=== PATIENT | male | born 1975 | race Caucasian/White ===

== ENCOUNTER 2019-10-22 21:12 | Inpatient (IN) | payer OTHER ==
[2019-10-22] MEDS ORDERED: LORazepam 2 MG/ML INJ IV STA (21:31)
[2019-10-22] MEDS ORDERED: LIDOCAINE 1%-EPI 1:100,000 20 ML VIAL SQ STA (22:23)
--- NOTE | 2019-10-22 22:49 | CT ---
EXAMINATION TYPE: CT brain nitzaine wo con DATE OF EXAM: 10/22/2019 COMPARISON: None HISTORY: fall following seizure CT DLP: combined DLP 1213.1 mGycm Automated exposure control for dose reduction was used. Multiple axial sections were obtained of the brain without contrast. Multiple axial sections were obt ained from the skull base to T1 vertebra without contrast. FINDINGS: Ventricles have fairly normal size. There is no mass effect nor midline shift. There is no sign of in tracranial hemorrhage. Calvarium is intact. There is no evidence of cerebral edema. There is some straightening of the mid cervical spine. There is anterior mild spurring at C4-5 C5-6. Posterior elements are intact. There is no evidence of cervical compression fracture. Facet joints ar e intact. IMPRESSION: Negative CT scan of the brain. Negative CT scan cervical spine.
[2019-10-22 22:54] LABS: ALT 109 U/L (4-49); AST 62 U/L (17-59); African American GFR (CKD) >90 (>60 ml/min/1.73 sqM); Albumin 3.9 g/dL (3.5-5.0); Alkaline Phosphatase 118 U/L (38-126); Anion Gap 6 mmol/L; Blood Urea Nitrogen 18 mg/dL (9-20); Carbon Dioxide 26 mmol/L (22-30); Chloride 109 mmol/L (98-107); Creatine Kinase 197 U/L (55-170); Glucose 120 mg/dL (74-99); Non-African American GFR(CKD) >90 (>60 ml/min/1.73 sqM); Potassium 3.8 mmol/L (3.5-5.1); Sodium 141 mmol/L (137-145); Total Protein 6.5 g/dL (6.3-8.2)
[2019-10-22 22:55] LABS: HCT 32.8 % (39.0-53.0); HGB 10.5 gm/dL (13.0-17.5); MCH 32.8 pg (25.0-35.0); MCHC 31.9 g/dL (31.0-37.0); MCV 102.8 fL (80.0-100.0); Macrocytosis Slight; Mean Platelet Volume 7.6; Platelet Count 220 k/uL (150-450); RBC 3.19 m/uL (4.30-5.90); RDW 15.3 % (11.5-15.5); WBC 4.2 k/uL (3.8-10.6)
--- NOTE | 2019-10-22 22:55 | ED ---
Fall HPI <Ashley Barnes Sánchez - Last Filed: 10/23/19 01:18> - General Source: patient, EMS Mode of arrival: EMS <Heather Cisneros - Last Filed: 10/25/19 00:41> - General Chief Complaint: Fall Stated Complaint: seizure Time Seen by Provider: 10/22/19 21:14 - History of Present Illness Initial Comments: The patient is a 44-year-old male with past history of alcohol abuse presents emergency room and from [place]. He was admitted there last Sunday for alcohol abuse. States that this was the last time that he drank. He has been receiving Ativan daily for withdrawal. States that today was the first day that he did not receive any Ativan. He ate dinner and went outside to have a cigarette. States that this was the last thing that he remembered. Bystanders saw that the patient fell forward and hit his left forehead on the concrete. He then began having full tonic-clonic seizure-like activity. This lasted appro ximately 1 minute. The patient then was postictal for approximately 10 minutes. He was placed in a c-collar and EMS transported him to the emergency room for further evaluation. He does arrive to me and is alert and oriented. He states that he has had a history of one seizure previously from alcohol withdrawal. States that at that time he attempted to stop drinking cold turkey and had a seizure. Denies a history of other seizure disorder. States that he felt well prior to the incident. No report of chest pain or shortness of breath prior to the incident. Denies any headaches or visual changes currently. Admits to neck pain because of the c-collar in place. He denies any pain in his upper or lower extremities. No back or flank pain. No use of any other illicit substances. Denies any fevers or chills. Tetanus is up-to-date. There are no alleviating, precipitating or modifying factors (Heather Cisneros) - Related Data Home Medications Medication Instructions Recorded Confirmed Acetaminophen Tab [Tylenol] 650 mg PO Q4H PRN 10/22/19 10/22/19 Calcium/Magnesium(Unknown Dose) 2 tab PO TID 10/22/19 10/22/19 Chlorpheniramine Maleate 4 mg PO Q4H PRN 10/22/19 10/22/19 [Chlor-Trimeton] Ibuprofen [Motrin] 600 mg PO Q6H PRN 10/22/19 10/22/19 Multivitamins, Thera [Multivitamin 1 tab PO DAILY@1330 10/22/19 10/22/19 (formulary)] Ondansetron HCl [Zofran] 8 mg PO Q6H PRN 10/22/19 10/22/19 Thiamine [Vitamin B-1] 100 mg PO DAILY@1330 10/22/19 10/22/19 Tigan 200mg Im Solution 200 mg IM Q6H PRN 10/22/19 10/22/19 Tigan 300mg Suppository 300 mg RECTAL Q6H PRN 10/22/19 10/22/19 Trimethobenzamide HCl [Tigan] 300 mg PO Q6H PRN 10/22/19 10/22/19 Zofran 2mg/Ml Im Solution 4 mg IM Q6H PRN 10/22/19 10/22/19 busPIRone HCl [Buspar] 10 mg PO TID PRN 10/22/19 10/22/19 traZODone HCL 50 - 150 mg PO HS 10/22/19 10/22/19 Previous Rx's Medication Instructions Recorded Folic Acid 1 mg PO DAILY tab 10/24/19 HYDROcodone/APAP 7.5-325MG [[place] 1 each PO Q6H PRN tab 10/24/19 7.5-325] Allergies Allergy/AdvReac Type Severity Reaction Status Date / Time No Known Allergies Allergy Verified 10/22/19 23:27 Review of Systems ROS Other: All systems not noted in ROS Statement are negative. <Ashley Barnes - Last Filed: 10/23/19 01:18> ROS Other: All systems not noted in ROS Statement are negative. <Heather Cisneros - Last Filed: 10/25/19 00:41> ROS Statement: Those systems with pertinent positive or pertinent negative responses have been documented in the HPI. Past Medical History History of Any Multi-Drug Resistant Organisms: None Reported Past Surgical History: No Surgical Hx Reported Past Psychological History: No Psychological Hx Reported Smoking Status: Current every day smoker Past Alcohol Use History: None Reported Past Drug Use History: None Reported <Haether Cisneros - Last Filed: 10/25/19 00:41> General Exam Limitations: no limitations General appearance: alert Head exam: Present: other (stellate laceration right forehead measuring 8.5x 1.0 cm. no deep strcture involvement. no occular entraptment) Eye exam: Present: normal appearance, PERRL, EOMI. Absent: scleral icterus, conjunctival injection, periorbital swelling ENT exam: Present: normal exam, mucous membranes moist Neck exam: Present: normal inspection. Absent: tenderness, meningismus, lymphadenopathy Respiratory exam: Present: normal lung sounds bilaterally. Absent: respiratory distress, wheezes, rales, rhonchi, stridor Cardiovascular Exam: Present: regular rate, normal rhythm, normal heart sounds. Absent: systolic murmur, diastolic murmur, rubs, gallop, clicks Extremities exam: Present: normal inspection, full ROM, normal capillary refill. Absent: tenderness, pedal edema, joint swelling, calf tenderness Back exam: Present: normal inspection Neurological exam: Present: alert, oriented X3, CN II-XII intact <Heather Cisneros - Last Filed: 10/25/19 00:41> Course Vital Signs 10/22/19 10/23/19 10/23/19 21:14 01:49 06:05 Temperature 98.8 F Pulse Rate 88 87 96 Respiratory 18 18 18 Rate Blood Pressure 145/95 128/70 103/63 O2 Sat by Pulse 98 99 99 Oximetry 10/23/19 07:26 Temperature Pulse Rate 76 Respiratory 16 Rate Blood Pressure 132/74 O2 Sat by Pulse 99 Oximetry Procedures - Laceration Laceration #1 Consent Obtained: verbal consent Indication: laceration Site: face Description: stellate Depth: simple, single layer Anesthetic Used: lidocaine 1%, with epi Pre-repair: wound explored, irrigated extensively Type of Sutures: nylon Size of Sutures: 4-0 Number of Sutures: 8 Technique: simple, interrupted Patient Tolerated Procedure: well, no complications <Ashley Barnes - Last Filed: 10/23/19 01:18> Medical Decision Making - Lab Data Result diagrams: 10/22/19 22:32 10/22/19 22:32 <Ashley Barnes - Last Filed: 10/23/19 01:18> - Lab Data Result diagrams: 10/23/19 06:33 10/23/19 06:33 <Heather Cisneros - Last Filed: 10/25/19 00:41> - Medical Decision Making Upon arrival the patient was placed into room 14. Her history and physical exam was performed. I did send the patient for CT of his brain, cervical spine and facial bones. CT was negative for any acute fracture or intracranial bleed and therefore his c-collar was removed. I also performed laboratory studies. The patient was given 1 mg of Ativan IV. I did recommend hospital admission because of his withdrawal seizure. Patient did agree to this. I called and discussed the case with Dr. Antoine who accepted admission for the patient. Dr. Barnes did repair his laceration. I discussed the case with Dr. Garcia who did agree to consult on the patient however did refuse admission. I placed him on alcohol withdrawal protocol. He was then transported to the floor in stable condition (Heather Cisneros) - Lab Data Lab Results 10/22/19 10/22/19 10/22/19 Range/Units 22:32 22:32 22:32 WBC 4.2 (3.8-10.6) k/uL RBC 3.19 L (4.30-5.90) m/uL Hgb 10.5 L (13.0-17.5) gm/dL Hct 32.8 L (39.0-53.0) % MCV 102.8 H (80.0-100.0) fL MCH 32.8 (25.0-35.0) pg MCHC 31.9 (31.0-37.0) g/dL RDW 15.3 (11.5-15.5) % Plt Count 220 (150-450) k/uL Neutrophils % (Manual) 45 % Lymphocytes % (Manual) 28 % Monocytes % (Manual) 17 % Eosinophils % (Manual) 5 % Basophils % (Manual) 5 % Neutrophils # (Manual) 1.89 (1.3-7.7) k/uL Lymphocytes # (Manual) 1.18 (1.0-4.8) k/uL Monocytes # (Manual) 0.71 (0-1.0) k/uL Eosinophils # (Manual) 0.21 (0-0.7) k/uL Basophils # (Manual) 0.21 H (0-0.2) k/uL Nucleated RBCs 0 (0-0) /100 WBC Manual Slide Review Performed Reactive Lymphocytes Present Macrocytosis Slight Sodium 141 (137-145) mmol/L Potassium 3.8 (3.5-5.1) mmol/L Chloride 109 H (98-107) mmol/L Carbon Dioxide 26 (22-30) mmol/L Anion Gap 6 mmol/L BUN 18 (9-20) mg/dL Creatinine 0.84 (0.66-1.25) mg/dL Est GFR (CKD-EPI)AfAm >90 (>60 ml/min/1.73 sqM) Est GFR (CKD-EPI)NonAf >90 (>60 ml/min/1.73 sqM) Glucose 120 H (74-99) mg/dL Plasma Lactic Acid Ivan 1.0 (0.7-2.0) mmol/L Calcium 9.0 (8.4-10.2) mg/dL Total Bilirubin 1.0 (0.2-1.3) mg/dL AST 62 H (17-59) U/L ALT 109 H (4-49) U/L Alkaline Phosphatase 118 (38-126) U/L Creatine Kinase 197 H (55-170) U/L Total Protein 6.5 (6.3-8.2) g/dL Albumin 3.9 (3.5-5.0) g/dL Lipase 298 (23-300) U/L - EKG Data EKG Comments: EKG demonstrates normal sinus rhythm with a ventricular rate of 76. UT interval 164. QRS 88. QTC of 429. There is J-point elevation in V2. No acute ST segment ablation depressions concerning for ischemic changes (Heather Cisneros) Disposition <Ashley Barnes - Last Filed: 10/23/19 01:18> Is patient prescribed a controlled substance at d/c from ED?: No Decision to Admit Reason: Admit from EC Decision Date: 10/22/19 Decision Time: 23:46 <Heather Cisneros - Last Filed: 10/25/19 00:41> Clinical Impression: Alcohol withdrawal seizure, Facial laceration Disposition: ADMITTED IP TO THIS HOSP Condition: Stable
--- NOTE | 2019-10-22 23:00 | CT ---
EXAMINATION TYPE: CT facial bones wo con DATE OF EXAM: 10/22/2019 COMPARISON: None HISTORY: fall following seizure CT DLP: combined DLP 1213.1 mGycm Automated exposure control for dose reduction was used. Multiple axial sections were obtained from the bottom of the mandible to the top of the frontal sinus es without contrast. Mandibular ring is intact. Temporomandibular joints are intact. The zygomatic arches are intact. Orbi cristian margins are intact. There is no evidence of a blowout fracture. There is fairly normal aeration o f the paranasal sinuses. The nasal bone appears deviated slightly to the left side. No displaced frac ture seen. There is soft tissue swelling anterior to the left zygoma. The zygoma appear normal. There is left side periorbital soft tissue swelling. There is apparent laceration above and lateral to the left orbit in the scalp soft tissue. IMPRESSION: Soft tissue swelling on the left side. Periorbital soft tissue swelling and laceration. No fracture s een.
[2019-10-22 23:47] LABS: Basophils # (M) 0.21 k/uL (0-0.2); Eosinophils # (M) 0.21 k/uL (0-0.7); Lymphocytes # (M) 1.18 k/uL (1.0-4.8); Monocytes # (M) 0.71 k/uL (0-1.0); Neutrophils # (M) 1.89 k/uL (1.3-7.7); Neutrophils % (M) 45 %; Nucleated Red Blood Cells 0 /100 WBC (0-0); Total Cells Counted 100
[2019-10-22 23:48] LABS: Reactive Lymphocytes Present
[2019-10-22] MEDS ORDERED: THIAMINE 100 MG/ML 2 ML VIAL IM STA (23:55)
[2019-10-22] MEDS ORDERED: LORazepam 2 MG/ML INJ IV PRN ×3 (23:55)
[2019-10-22] MEDS ORDERED: NALOXONE 0.4 MG/ML 1 ML VIAL IV PRN (23:55)
[2019-10-23] MEDS: THIAMINE 100 MG TAB PO SCH ×3 (00:15→17:46)
[2019-10-23] MEDS: SODIUM CHLORIDE 0.9% 1,000 ML IV SCH ×3 (00:45→19:35)
--- NOTE | 2019-10-23 01:09 | P.HPIM ---
History of Present Illness H&P Date: 10/23/19 The patient is a 44-year-old male with a PMH of EtOH abuse who presented to the ED from [place] after a seizure. The patient reports that he was admitted to [place] on 10/15 for alcohol abuse and was in detox until 10/19. He notes that he was continued on Ativan and was receiving it up until yesterday. He notes feeling better and was at [facility] and had gone outside for cigarette after his dinner when he suddenly woke up on the ground, with people around him, who had activated EMS and informed them that the patient had what appeared to be a grand mal seizure. The patient reports that he previously had one episode of grand mal seizure when he attempted to detox from alcohol on his own. He denied any additional episodes of seizure and reports never taking any anti seizure me dications. The patient suffered facial trauma due to falling on the concrete. At time of the interview, he denied headache, visual disturbances, nausea, vomiting, weakness, numbness, or tingling. The patient underwent an extensive evaluation in the emergency room with a head/cervical spine CT unremarkable and of a facial CT showing soft tissue swelling on the left side with periorbital soft tissue swelling and lacerations with no fractures. EKG revealed normal sinus rhythm at [address]/T-wave changes noted. Laboratory evaluation revealed a WBC count of 4.2, hematocrit 12.5, platelets 220, sodium 141, potassium 3.8, chloride 109, BUN 18, creatinine 0.84, AST 62, ALT 109, lactic ac id 1.0, creatine kinase 197. The patient is being admitted to the medicine service for alcohol withdrawal seizure. Review of Systems Pertinent positives and negatives as discussed in HPI, a complete review of systems was performed and all other systems are negative. Past Medical History History of Any Multi-Drug Resistant Organisms: None Reported Past Surgical History: No Surgical Hx Reported Past Psychological History: No Psychological Hx Reported Smoking Status: Current every day smoker Past Alcohol Use History: None Reported Past Drug Use History: None Reported Medications and Allergies Home Medications Medication Instructions Recorded Confirmed Type Acetaminophen Tab [Tylenol Tab] 650 mg PO Q4H PRN 10/22/19 10/22/19 History Calcium/Magnesium(Unknown Dose) 2 tab PO TID 10/22/19 10/22/19 History Chlorpheniramine Maleate 4 mg PO Q4H PRN 10/22/19 10/22/19 History [Chlor-Trimeton] Ibuprofen [Motrin] 600 mg PO Q6H PRN 10/22/19 10/22/19 History Multivitamins, Thera [Multivitamin 1 tab PO DAILY@1330 10/22/19 10/22/19 History (formulary)] Ondansetron HCl [Zofran] 8 mg PO Q6H PRN 10/22/19 10/22/19 History Thiamine [Vitamin B-1] 100 mg PO DAILY@1330 10/22/19 10/22/19 History Tigan 200mg Im Solution 200 mg IM Q6H PRN 10/22/19 10/22/19 History Tigan 300mg Suppository 300 mg RECTAL Q6H PRN 10/22/19 10/22/19 History Trimethobenzamide HCl [Tigan] 300 mg PO Q6H PRN 10/22/19 10/22/19 History Zofran 2mg/Ml Im Solution 4 mg IM Q6H PRN 10/22/19 10/22/19 History busPIRone HCl [Buspar] 10 mg PO TID PRN 10/22/19 10/22/19 History traZODone HCL 50 - 150 mg PO HS 10/22/19 10/22/19 History Allergies Allergy/AdvReac Type Severity Reaction Status Date / Time No Known Allergies Allergy Verified 10/22/19 23:27 Physical Exam Vitals: Vital Signs Temp Pulse Resp BP Pulse Ox 10/22/19 21:14 98.8 F 88 18 145/95 98 Intake and Output 10/22/19 10/22/19 10/23/19 14:59 22:59 06:59 Other: Weight 86.183 kg General: non toxic, no distress, appears at stated age, normal weight Derm: Dressing overlying face and forehead with a L forehead 5-6 cm laceration noted, no active bleeding noted, left lower extremity ecchymosis noted (patient reports bruising occurred several weeks ago, now improving), warm, dry Head: normocephalic, symmetric Eyes: EOMI, no lid lag, anicteric sclera, pupils equal round reactive to light ENT: Nose and ears atraumatic, no thrush, no pharyngeal erythema, mild tongue fasciculations Neck: No thyromegaly, no cervical lymphadenopathy, trachea midline, supple Mouth: no lip lesion, mucus membranes moist Cardiovascular: S1S2 reg, no murmur, positive posterior tibial pulse bilateral, no edema, capillary refill less than 2 seconds Lungs: CTA bilateral, no rhonchi, no rales , no accessory muscle use Abdominal: soft, nontender to palpation, no guarding, no appreciable organomegaly, normal bowel sounds Ext: no gross muscle atrophy, muscle strength 5 out of 5 in all 4 extremities grossly, no contractures, Neuro: CN II-XI grossly intact, light touch intact all 4 extremities, finger to nose within normal limits, mild out-stretched hand tremor Psych: Alert, oriented, appropriate affect Results CBC & Chem 7: 10/22/19 22:32 10/22/19 22:32 Labs: Abnormal Lab Results - Last 24 Hours (Table) 10/22/19 10/22/19 Range/Units 22:32 22:32 RBC 3.19 L (4.30-5.90) m/uL Hgb 10.5 L (13.0-17.5) gm/dL Hct 32.8 L (39.0-53.0) % MCV 102.8 H (80.0-100.0) fL Basophils # (Manual) 0.21 H (0-0.2) k/uL Chloride 109 H (98-107) mmol/L Glucose 120 H (74-99) mg/dL AST 62 H (17-59) U/L ALT 109 H (4-49) U/L Creatine Kinase 197 H (55-170) U/L Assessment and Plan Plan: Alcohol withdrawal seizure -[facility] protocol -Thiamine, folic acid, multivitamin -Fall, aspiration, seizure precautions -Neuro checks every 4 hourly -Surgery consulted due to trauma -Continue with IV fluids -Monitor electrolytes -Cardiac monitoring Facial trauma with laceration -Surgery consulted Abnormal LFTs -Likely due to history of alcohol abuse -Monitor CMP Macrocytic anemia -Check anemia workup DVT prophylaxis -IPCDs The patient is admitted with an anticipated less than 2 midnight stay for evaluation of alcohol withdrawal seizure CODE STATUS: Full Code Discussed with: Patient Anticipated discharge date: 1-[address]: [place] A total of 40 minutes was spent on the care of this complex patient more than 50% of the time was spent in counseling and care coordination.
[2019-10-23] MEDS ORDERED: busPIRone HCl 10 MG TAB PO PRN (01:10)
[2019-10-23 07:44] LABS: HCT 33.6 % (39.0-53.0); HGB 10.7 gm/dL (13.0-17.5); Hypochromasia Slight; MCV 103.1 fL (80.0-100.0); Macrocytosis Slight; Mean Platelet Volume 7.7; Platelet Count 234 k/uL (150-450); RBC 3.25 m/uL (4.30-5.90)
[2019-10-23 08:02] LABS: ALT 98 U/L (4-49); AST 52 U/L (17-59); African American GFR (CKD) >90 (>60 ml/min/1.73 sqM); Albumin 3.6 g/dL (3.5-5.0); Alkaline Phosphatase 111 U/L (38-126); Anion Gap 7 mmol/L; Blood Urea Nitrogen 14 mg/dL (9-20); Calcium 8.7 mg/dL (8.4-10.2); Carbon Dioxide 24 mmol/L (22-30); Chloride 109 mmol/L (98-107); Glucose 73 mg/dL (74-99); Non-African American GFR(CKD) >90 (>60 ml/min/1.73 sqM); Sodium 140 mmol/L (137-145); Total Protein 6.3 g/dL (6.3-8.2)
[2019-10-23] MEDS: FOLIC ACID 1 MG TAB PO SCH (11:17)
[2019-10-23] MEDS: MULTIVITAMINS, THERA 1 EACH TAB PO SCH (11:17)
--- NOTE | 2019-10-23 15:12 | P.GSCN ---
<Carissa Garza - Last Filed: 10/23/19 14:56> History of Present Illness Consult date: 10/23/19 Reason for Consult: fall Requesting physician: Heather Cisneros History of present illness: CHIEF COMPLAINT: fall HISTORY OF PRESENT ILLNESS: 44 year old male who presented to the ER after sustaining a fall. Patient is currently at [facility] for rehab secondary to history of alcohol abuse. Patient states he was walking outside and fell. He fell forward on the concrete striking his face. Patient does not remember the fall. Patient suffered a laceration above his left eyebrow which was sutured in the emergency room. PAST MEDICAL HISTORY: See list. PAST SURGICAL HISTORY: See list. MEDICATIONS: See list. ALLERGIES: See list. SOCIAL HISTORY: No illicit drug use. REVIEW OF SYSTEMS: CONSTITUTIONAL: Denies fever or chills. HEENT: Denies blurred vision, vision changes, or eye pain. Denies hemoptysis ENDOCRINE: Denies heat or cold intolerance. CARDIOVASCULAR: Denies chest pain or pressure. RESPIRATORY: No shortness of breath. GASTROINTESTINAL: Denies abdominal pain. Denies nausea or vomiting. NEURO: History of seizures due to alcohol withdrawal PSYCH: History of alcohol abuse HEMATOLOGIC: Denies bleeding disorders. LYMPHATIC: The patient denies any lumps and bumps around the neck. GENITOURINARY: Denies any blood in urine or increased urinary frequency. MUSCULOSKELETAL: Denies myalgias. Denies joint swelling. Denies decreased range of motion beyond patients baseline. SKIN: Denies pruitis. Denies rash. PHYSICAL EXAM: VITAL SIGNS: Reviewed GENERAL: Well-developed in no acute distress. HEENT: No sclera icterus. Extraocular movements grossly intact. Moist buccal mucosa. Head is normocephalic. Laceration above left eyebrow that has been sutured. Edema and ecchymosis noted. Hears conversational speech. No nasal drainage. NECK: Supple without lymphadenopathy. CHEST: Non-labored respirations and equal bilateral excursions. CARDIOVASCULAR: Regular rate with regular rhythm. Palpable 2+ radial pulses. ABDOMEN: Soft. Nondistended. Nontender. MUSCULOSKELETAL: No clubbing, cyanosis or edema. NEUROLOGIC: No focal or lateralizing signs. Cranial nerves II through XII grossly intact. PSYCH: Appropriate affect. Alert and oriented to person, place and time. SKIN: Well perfused. Good skin turgor. LABORATORY DATA: W BC 5.0. Hemoglobin 10.7. Platelet count 234. Sodium 143 potassium 4.0. B UN 14. Creatinine 0.75. Lactic acid 1.0 IMAGING: CT brain: Negative for acute process CT cervical spine: Negative for acute process CT face: Soft tissue swelling on the left side. Periorbital soft tissue swelling and laceration. No fracture seen. ASSESSMENT: 1. Trauma, s/p fall from standing 2. History of seizures 3. Facial trauma with laceration 4. History of alcohol abuse PLAN: No surgical intervention recommended from a trauma surgery standpoint. Continue management per internal medicine Nurse practitioner note has been reviewed by physician. Signing provider agrees with the documented findings, assessment, and plan of care. Past Medical History Past Medical History: Seizure Disorder Additional Past Medical History / Comment(s): ETOH abuse, ETOH withdrawal with seizure once in the past. History of Any Multi-Drug Resistant Organisms: None Reported Past Surgical History: No Surgical Hx Reported Past Anesthesia/Blood Transfusion Reactions: Unable to Obtain Additional Past Anesthesia/Blood Transfusion Reaction / Comm: Pt has never had surgery. Smoking Status: Current every day smoker - Past Family History Father Family Medical History: No Reported History Additional Family Medical History / Comment(s): Father is healthy Mother Family Medical History: No Reported History Additional Family Medical History / Comment(s): Mother is healthy. Medications and Allergies Home Medications Medication Instructions Recorded Confirmed Type Acetaminophen Tab [Tylenol] 650 mg PO Q4H PRN 10/22/19 10/22/19 History Calcium/Magnesium(Unknown Dose) 2 tab PO TID 10/22/19 10/22/19 History Chlorpheniramine Maleate 4 mg PO Q4H PRN 10/22/19 10/22/19 History [Chlor-Trimeton] Ibuprofen [Motrin] 600 mg PO Q6H PRN 10/22/19 10/22/19 History Multivitamins, Thera [Multivitamin 1 tab PO DAILY@132910/22/19 10/22/19 History (formulary)] Ondansetron HCl [Zofran] 8 mg PO Q6H PRN 10/22/19 10/22/19 History Thiamine [Vitamin B-1] 100 mg PO DAILY@132910/22/19 10/22/19 History Tigan 200mg Im Solution 200 mg IM Q6H PRN 10/22/19 10/22/19 History Tigan 300mg Suppository 300 mg RECTAL Q6H PRN 10/22/19 10/22/19 History Trimethobenzamide HCl [Tigan] 300 mg PO Q6H PRN 10/22/19 10/22/19 History Zofran 2mg/Ml Im Solution 4 mg IM Q6H PRN 10/22/19 10/22/19 History busPIRone HCl [Buspar] 10 mg PO TID PRN 10/22/19 10/22/19 History traZODone HCL 50 - 150 mg PO HS 10/22/19 10/22/19 History Folic Acid 1 mg PO DAILY tab 10/24/19 Rx HYDROcodone/APAP 7.5-325MG [[place] 1 each PO Q6H PRN tab 10/24/19 Rx 7.5-325] Allergies Allergy/AdvReac Type Severity Reaction Status Date / Time No Known Allergies Allergy Verified 10/22/19 23:27 Surgical - Exam Vital Signs Temp Pulse Resp BP Pulse Ox 98.8 F 88 18 145/95 98 10/22/19 21:14 10/22/19 21:14 10/22/19 21:14 10/22/19 21:14 10/22/19 21:14 Results - Labs 10/23/19 06:33 10/23/19 06:33 Abnormal Lab Results - Last 24 Hours (Table) 10/22/19 10/22/19 10/23/19 Range/Units 22:32 22:32 06:33 RBC 3.19 L 3.25 L (4.30-5.90) m/uL Hgb 10.5 L 10.7 L (13.0-17.5) gm/dL Hct 32.8 L 33.6 L (39.0-53.0) % MCV 102.8 H 103.1 H (80.0-100.0) fL Basophils # (Manual) 0.21 H (0-0.2) k/uL Chloride 109 H (98-107) mmol/L Glucose 120 H (74-99) mg/dL AST 62 H (17-59) U/L ALT 109 H (4-49) U/L Creatine Kinase 197 H (55-170) U/L 10/23/19 Range/Units 06:33 RBC (4.30-5.90) m/uL Hgb (13.0-17.5) gm/dL Hct (39.0-53.0) % MCV (80.0-100.0) fL Basophils # (Manual) (0-0.2) k/uL Chloride 109 H (98-107) mmol/L Glucose 73 L (74-99) mg/dL AST (17-59) U/L ALT 98 H (4-49) U/L Creatine Kinase (55-170) U/L Diabetes panel 10/22/19 10/23/19 Range/Units 22:32 06:33 Sodium 141 140 (137-145) mmol/L Potassium 3.8 4.0 (3.5-5.1) mmol/L Chloride 109 H 109 H (98-107) mmol/L Carbon Dioxide 26 24 (22-30) mmol/L BUN 18 14 (9-20) mg/dL Creatinine 0.84 0.75 (0.66-1.25) mg/dL Glucose 120 H 73 L (74-99) mg/dL Calcium 9.0 8.7 (8.4-10.2) mg/dL AST 62 H 52 (17-59) U/L ALT 109 H 98 H (4-49) U/L Alkaline Phosphatase 118 111 (38-126) U/L Total Protein 6.5 6.3 (6.3-8.2) g/dL Albumin 3.9 3.6 (3.5-5.0) g/dL Calcium panel 10/22/19 10/23/19 Range/Units 22:32 06:33 Calcium 9.0 8.7 (8.4-10.2) mg/dL Albumin 3.9 3.6 (3.5-5.0) g/dL Pituitary panel 10/22/19 10/23/19 Range/Units 22:32 06:33 Sodium 141 140 (137-145) mmol/L Potassium 3.8 4.0 (3.5-5.1) mmol/L Chloride 109 H 109 H (98-107) mmol/L Carbon Dioxide 26 24 (22-30) mmol/L BUN 18 14 (9-20) mg/dL Creatinine 0.84 0.75 (0.66-1.25) mg/dL Glucose 120 H 73 L (74-99) mg/dL Calcium 9.0 8.7 (8.4-10.2) mg/dL Adrenal panel 10/22/19 10/23/19 Range/Units 22:32 06:33 Sodium 141 140 (137-145) mmol/L Potassium 3.8 4.0 (3.5-5.1) mmol/L Chloride 109 H 109 H (98-107) mmol/L Carbon Dioxide 26 24 (22-30) mmol/L BUN 18 14 (9-20) mg/dL Creatinine 0.84 0.75 (0.66-1.25) mg/dL Glucose 120 H 73 L (74-99) mg/dL Calcium 9.0 8.7 (8.4-10.2) mg/dL Total Bilirubin 1.0 1.0 (0.2-1.3) mg/dL AST 62 H 52 (17-59) U/L ALT 109 H 98 H (4-49) U/L Alkaline Phosphatase 118 111 (38-126) U/L Total Protein 6.5 6.3 (6.3-8.2) g/dL Albumin 3.9 3.6 (3.5-5.0) g/dL <Melva Garcia N - Last Filed: 10/24/19 17:14> History of Present Illness History of present illness: As above. No surgical intervention needed. Sutures along the face to remain for at least 5 days prior to removal. Surgical - Exam Vital Signs Temp Pulse Resp BP Pulse Ox 98.8 F 88 18 145/95 98 10/22/19 21:14 10/22/19 21:14 10/22/19 21:14 10/22/19 21:14 10/22/19 21:14 Results - Labs 10/23/19 06:33 10/23/19 06:33
--- NOTE | 2019-10-23 16:01 | P.PN ---
Progress Note - Text Progress Note Date: 10/23/19 Patient was seen and examined. Please refer to H&P for full documentation. Patient reports history of alcohol abuse, and. [facility] for detox on , has been on oral Ativan, unsure of dosing. Patient was smoking a cigarette when he lost consciousness without prodrome. Patient states that he is unsure if he was shaking. He denies any tongue biting. No bladder or bowel incontinence. States that he had a seizure 4-5 years ago from alcohol withdrawal. Patient is alert and oriented 3. Patient is within the time frame for alcohol-induced seizures. He has been on oral Ativan but unsure of dosing. We will evaluate patient for syncopal episode. Orthostats ordered. Telemetry monitoring. EEG. Neurology consult. Plans for possible DC tomorrow.
[2019-10-23 16:46] LABS: Folate, Serum 6.3 ng/mL
[2019-10-23] MEDS ORDERED: HYDROcodone/APAP 7.5-325MG 1 EACH TAB PO ONE (19:40)
[2019-10-23] MEDS ORDERED: NICOTINE POLACRILEX 2 MG GUM BUCCAL STA (21:32)
[2019-10-23] MEDS: NICOTINE 21MG/24HR PATCH TRANSDERM SCH (21:33)
[2019-10-23 21:47] VITALS: RESP 16
[2019-10-24] MEDS: SODIUM CHLORIDE 0.9% 1,000 ML IV SCH (04:54)
[2019-10-24] MEDS: MULTIVITAMINS, THERA 1 EACH TAB PO SCH (07:46)
[2019-10-24] MEDS: NICOTINE 21MG/24HR PATCH TRANSDERM SCH (07:46)
[2019-10-24] MEDS: THIAMINE 100 MG TAB PO SCH (07:46)
[2019-10-24] MEDS: FOLIC ACID 1 MG TAB PO SCH (07:46)
[2019-10-24] MEDS: HYDROcodone/APAP 7.5-325MG 1 EACH TAB PO PRN ×2 (08:32→15:31)
--- NOTE | 2019-10-24 10:00 | ECHOF ---
Referral Reason:Syncope MEASUREMENTS -------- HEIGHT: 182.9 cm WEIGHT: 86.2 kg BP: RVIDd: 2.5 cm (< 3.3) IVSd: 1.0 cm (0.6 - 1.1) LVIDd: 3.2 cm (3.9 - 5.3) LVPWd: 1.1 cm (0.6 - 1.1) IVSs: 1.4 cm LVIDs: 1.9 cm LVPWs: 1.5 cm LAESV Index (A-L): 25.35 ml/m Ao Diam: 3.2 cm (2.0 - 3.7) AV Cusp: 1.6 cm (1.5 - 2.6) LA Diam: 2.4 cm (2.7 - 3.8) MV EXCURSION: 19.783 mm (> 18.000) MV EF SLOPE: 166 mm/s (70 - 150) EPSS: 0.6 cm MV E Rohit: 0.82 m/s MV DecT: 212 ms MV A Rohit: 0.67 m/s MV E/A Ratio: 1.22 RAP: 5.00 mmHg RVSP: 14.42 mmHg TAPSE: 29.50 mm FINDINGS -------- Sinus rhythm. This was a technically good study. The left ventricular size is normal. Left ventricular wall thickness is normal. Overall left vent ricular systolic function is normal with, an EF between 55 - 60 %. The diastolic filling pattern is normal The right ventricle is normal in size. The right ventricular systolic function is normal. The left atrial size is normal. Normal LA size by volume 22+/-6 ml/m2. The right atrial size is normal. Interatrial and interventricular septum intact. The aortic valve is trileaflet and appears structurally normal. The mitral valve is normal. The mitral valve leaflets are mildly thickened. There is trace mitral regurgitation. The tricuspid valve appears structurally normal. Trace tricuspid regurgitation present. Right mindy tricular systolic pressure is normal at < 35 mmHg. There is no pulmonic regurgitation present. The aortic root size is normal. Normal inferior vena cava with normal inspiratory collapse consistent with estimated right atrial pre ssure of 5 mmHg. There is no pericardial effusion. CONCLUSIONS -------- 1. Sinus rhythm. 2. This was a technically good study. 3. The left ventricular size is normal. 4. Left ventricular wall thickness is normal. 5. Overall left ventricular systolic function is normal with, an EF between 55 - 60 %. 6. The diastolic filling pattern is normal 7. The right ventricle is normal in size. 8. The right ventricular systolic function is normal. 9. The left atrial size is normal. 10. Normal LA size by volume 22+/-6 ml/m2. 11. The right atrial size is normal. 12. Interatrial and interventricular septum intact. 13. The aortic valve is trileaflet and appears structurally normal. 14. The mitral valve is normal. 15. The mitral valve leaflets are mildly thickened. 16. There is trace mitral regurgitation. 17. The tricuspid valve appears structurally normal. 18. Trace tricuspid regurgitation present. 19. Right ventricular systolic pressure is normal at < 35 mmHg. 20. There is no pulmonic regurgitation present. 21. The aortic root size is normal. 22. Normal inferior vena cava with normal inspiratory collapse consistent with estimated right atrial pressure of 5 mmHg. 23. There is no pericardial effusion. JACKSCREW MAN: Светлана Paul RDCS
--- NOTE | 2019-10-24 10:25 | P.PN ---
<Carissa Garza A - Last Filed: 10/24/19 10:22> Subjective Progress Note Date: 10/24/19 CHIEF COMPLAINT: fall HISTORY OF PRESENT ILLNESS: Patient seen and examined this morning at the bedside. Patient reports discomfort to left eye but states it has improved since yesterday. Denies abdominal pain. Tolerating diet. Denies nausea or vomiting. Vital signs are stable. He is afebrile. PHYSICAL EXAM: VITAL SIGNS: Reviewed GENERAL: Well-developed in no acute distress. HEENT: No sclera icterus. Extraocular movements grossly intact. Moist buccal mucosa. Head is normocephalic. Laceration above left eyebrow that has been sutured. Edema and ecchymosis noted. Hears conversational speech. No nasal drainage. NECK: Supple without lymphadenopathy. CHEST: Non-labored respirations and equal bilateral excursions. CARDIOVASCULAR: Regular rate with regular rhythm. Palpable 2+ radial pulses. ABDOMEN: Soft. Nondistended. Nontender. MUSCULOSKELETAL: No clubbing, cyanosis or edema. NEUROLOGIC: No focal or lateralizing signs. Cranial nerves II through XII grossly intact. PSYCH: Appropriate affect. Alert and oriented to person, place and time. SKIN: Well perfused. Good skin turgor. ASSESSMENT: 1. Trauma, s/p fall from standing 2. History of seizures 3. Facial trauma with laceration 4. History of alcohol abuse PLAN: No surgical intervention recommended from a trauma surgery standpoint. Continue management per internal medicine We will sign off. Please reconsult if needed. Nurse practitioner note has been reviewed by physician. Signing provider agrees with the documented findings, assessment, and plan of care. Objective - Vital Signs Vital signs: Vital Signs Temp 96.1 F L 10/24/19 05:00 Pulse 66 10/24/19 05:00 Resp 16 10/24/19 05:00 BP 120/71 10/24/19 05:00 Pulse Ox 99 10/24/19 05:00 Intake & Output 10/23/19 10/24/19 10/24/19 18:59 06:59 18:59 Intake Total 240 2390 Balance 240 2390 Weight 86.183 kg Intake: Intake, IV Titration 1200 Amount Sodium Chloride 0.9% 1, 1200 000 ml @ 100 mls/hr IV . Q10H [facility] Rx#:[id number] Oral 240 1190 Other: Voiding Method Toilet Toilet Toilet # Voids 3 # Bowel Movements 1 - Labs CBC & Chem 7: 10/23/19 06:33 10/23/19 06:33 <Melva Garcia N - Last Filed: 10/24/19 17:15> Subjective As above. Patient clear from trauma surgery standpoint. Patient's been evaluated for seizure precautions. Objective - Vital Signs Vital signs: Vital Signs Temp 98.1 F 10/24/19 12:25 Pulse 79 10/24/19 12:25 Resp 16 10/24/19 12:25 BP 117/82 10/24/19 12:25 Pulse Ox 97 10/24/19 12:25 Intake & Output 10/23/19 10/24/19 10/24/19 18:59 06:59 18:59 Intake Total 240 2390 800 Balance 240 2390 800 Weight 86.183 kg Intake: Intake, IV Titration 1200 800 Amount Sodium Chloride 0.9% 1, 1200 800 000 ml @ 100 mls/hr IV . Q10H [facility] Rx#:[id number] Oral 240 1190 Other: Voiding Method Toilet Toilet Toilet # Voids 3 # Bowel Movements 1 - Labs CBC & Chem 7: 10/23/19 06:33 10/23/19 06:33
[2019-10-24] MEDS ORDERED: NICOTINE POLACRILEX 2 MG GUM BUCCAL PRN (11:15)
[2019-10-24 12:26] VITALS: BP 117/82; PULSE 79; TEMP 98.1
--- NOTE | 2019-10-24 13:39 | P.DS ---
Providers Date of admission: 10/22/19 23:55 Expected date of discharge: 10/24/19 Attending physician: Rachel Antoine MD Consults: 10/22/19 23:57 Consult Physician Urgent Consulting Provider: Melva Garcia Consult Reason/Comments: fall with BHT Do you want consulting provider notified?: Yes 10/23/19 15:55 Consult Physician Urgent Consulting Provider: Rosita Chandler Consult Reason/Comments: Syncope possible seizure, EtOH Do you want consulting provider notified?: Yes Primary care physician: Stated None Hospital Course: The patient is a 44-year-old male with a PMH of EtOH abuse who presented to the ED from [place] after a seizure. The patient reports that he was admitted to [place] on 10/15 for alcohol abuse and was in detox until 10/19. He notes that he was continued on Ativan and was receiving it up until yesterday. He notes feeling better and was at [facility] and had gone outside for cigarette after his dinner when he suddenly woke up on the ground, with people around him, who had activated EMS and informed them that the patient had what appeared to be a grand mal seizure. The patient underwent an extensive evaluation in the emergency room with a head/cervical spine CT unremarkable and of a facial CT showing soft tissue swelling on the left side with periorbital soft tissue swelling and lacerations with no fractures. EKG revealed normal sinus rhythm at [address]/T-wave changes noted. Laboratory evaluation revealed a WBC count of 4.2, hematocrit 12.5, platelets 220, sodium 141, potassium 3.8, chloride 109, BUN 18, creatinine 0.84, AST 62, ALT 109, lactic acid 1.0, creatine kinase 197. The patient is being admitted to the medicine service for alcohol withdrawal seizure. Patient received some stitches around the eye in the left side of his face. Trauma surgery evaluated the patient cleared the patient for discharge. Patient was placed on CIWA protocol and given thiamine, folic acid and multivitamin. He was placed on fall, aspiration and seizure precautions. He was hydrated with normal saline at 100 mL/h. Initially, EEG, echocardiogram and orthostats were ordered along with telemetry monitoring. Echocardiogram showed EF 55-60% with normal wall motion. Neurology evaluated the patient and the case was discussed with Dr. Chandler, she recommended that the patient likely suffered a seizure related to alcohol or Ativan withdrawal and recommended no EEG or antiepileptic medications. Neurology cleared the patient for discharge. Patient was seen and examined. No acute events overnight. No further seizures. He denies any chest pain, shortness of breath or palpitations. No nausea or vomiting. No fever or chills. General: [non toxic], [no distress], [appears at stated age] Derm: [warm], [dry] Head: [atraumatic], [normocephalic], [symmetric], [stitches around the left orbital area with mild swelling] Eyes: [EOMI], [no lid lag], [anicteric sclera] Mouth: [no lip lesion], [mucus membranes moist] Cardiovascular: [S1S2 reg], [no murmur], [positive DP pulse bilateral], Lungs: [CTA bilateral], [no rhonchi, no rales] , [no accessory muscle use] Abdominal: [soft], [ nontender to palpation], [no guarding], [no appreciable organomegaly] Ext: [no gross muscle atrophy], [no edema], [no contractures] Neuro: [no focal neuro deficits] Psych: [Alert], [oriented], [appropriate affect] Alcohol withdrawal seizure Facial trauma with laceration Abnormal LFTs Macrocytic anemia Evaluated by neurology and cleared. Received 1 mg of Ativan during entire hospitalization. Trauma surgery has evaluated the patient and cleared the patient for discharge. His LFTs have improved from admission, likely related to alcohol abuse. Hemoglobin remained stable. Plans for patient to go back to [facility] for rehab and alcohol detox. Patient has been advised that he should not drive until follow-up and clearance by neurology. He does have a primary care provider that he will see after discharge from [facility]. Pertinent Studies: Face CT, head CT, C-spine CT, echocardiogram Patient Condition at Discharge: Stable Plan - Discharge Summary Discharge Rx Participant: No New Discharge Prescriptions: New Folic Acid 1 mg PO DAILY tab HYDROcodone/APAP 7.5-325MG [[place] 7.5-325] 1 each PO Q6H PRN tab PRN Reason: Pain Continue busPIRone HCl [Buspar] 10 mg PO TID PRN PRN Reason: Anxiety Thiamine [Vitamin B-1] 100 mg PO DAILY@1330 Multivitamins, Thera [Multivitamin (formulary)] 1 tab PO DAILY@1330 Trimethobenzamide HCl [Tigan] 300 mg PO Q6H PRN PRN Reason: Nausea Tigan 200mg Im Solution 200 mg IM Q6H PRN PRN Reason: Nausea Ondansetron HCl [Zofran] 8 mg PO Q6H PRN PRN Reason: Nausea And Vomiting traZODone HCL 50 - 150 mg PO HS Zofran 2mg/Ml Im Solution 4 mg IM Q6H PRN PRN Reason: Nausea Chlorpheniramine Maleate [Chlor-Trimeton] 4 mg PO Q4H PRN PRN Reason: Allergy Symptoms Ibuprofen [Motrin] 600 mg PO Q6H PRN PRN Reason: Fever And/ Or Pain Acetaminophen Tab [Tylenol] 650 mg PO Q4H PRN PRN Reason: Fever And/ Or Pain Tigan 300mg Suppository 300 mg RECTAL Q6H PRN PRN Reason: Nausea Calcium/Magnesium(Unknown Dose) 2 tab PO TID Discharge Medication List Acetaminophen Tab [Tylenol] 650 mg PO Q4H PRN 10/22/19 [History] Calcium/Magnesium(Unknown Dose) 2 tab PO TID 10/22/19 [History] Chlorpheniramine Maleate [Chlor-Trimeton] 4 mg PO Q4H PRN 10/22/19 [History] Ibuprofen [Motrin] 600 mg PO Q6H PRN 10/22/19 [History] Multivitamins, Thera [Multivitamin (formulary)] 1 tab PO DAILY@132910/22/19 [History] Ondansetron HCl [Zofran] 8 mg PO Q6H PRN 10/22/19 [History] Thiamine [Vitamin B-1] 100 mg PO DAILY@13310/22/19 [History] Tigan 200mg Im Solution 200 mg IM Q6H PRN 10/22/19 [History] Tigan 300mg Suppository 300 mg RECTAL Q6H PRN 10/22/19 [History] Trimethobenzamide HCl [Tigan] 300 mg PO Q6H PRN 10/22/19 [History] Zofran 2mg/Ml Im Solution 4 mg IM Q6H PRN 10/22/19 [History] busPIRone HCl [Buspar] 10 mg PO TID PRN 10/22/19 [History] traZODone HCL 50 - 150 mg PO HS 10/22/19 [History] Folic Acid 1 mg PO DAILY tab 10/24/19 [Rx] HYDROcodone/APAP 7.5-325MG [[place] 7.5-325] 1 each PO Q6H PRN tab 10/24/19 [Rx] Follow up Appointment(s)/Referral(s): None,Stated [Primary Care Provider] - 1-2 days Leanne Zaman MD [STAFF PHYSICIAN] - 1 Week Activity/Diet/Wound Care/Special Instructions: pt will return to [facility] at time of d/c - nurse to call for ride - Discharge Disposition: OTHER INSTITUTION NOT DEFINED
--- NOTE | 2019-10-24 22:36 | P.CNNES ---
History of Present Illness Consult date: 10/24/19 Reason for Consult: EtOH withdrawal, AMS History of Present Illness: HISTORY OF PRESENT ILLNESS: Thank you for allowing me to evaluate Mr. Kevin Sanders is a 44 year-old man with PMhx of EtOH abuse , transferred to [facility] after a witness saw patient falling and having a GTC seizure. Patient states that his had recommended patient to be admitted for detox before he really goes downhill with his EtOH abuse, which occurs seasonally when he's not working during the winter time. Patient was getting Ativan everyday, but on the day he had the seizure episode, he had not gotten it. [facility] [place] near [place] which he really liked. Patient states he had one episode seizure several years ago when he decided to stop drinking cold-turkey on his own. He was intubated at that time. This is the second episode. Patient denies any head trauma, accidents, seizures when he was a child. Endorses pain on his L face where he fell. Denies nausea, vomiting, dizziness, vision changes, weakness, numbness or tingling. PAST MEDICAL HISTORY: EtOh abuse PAST SURGICAL HISTORY: None reported HOME MEDICATIONS: Calcium, MVT, thiamine, tazodone ALLERGIES: NKDA SOCIAL HISTORY: Current everyday smoker. EtOH abuse, last intake 10/15/2019. Patient drinks about 1/5 of vodka bottle everyday during the winter time when he doesn't work (works as a convenience store manager, seasonal job) REVIEW OF SYSTEMS: The 14 systems are reviewed and no additional points are identified compared to the review of systems documented history and physical PHYSICAL EXAMINATION: VITAL SIGNS: T 96.1 HR 66 RR 16 BP 120/71 O2 sat 99% on RA GEN.: NAD, pleasant and cooperative HEENT: laceration and bruising from the fall over L eye/forehead, scleral icteru s NECK: Supple SKIN AND EXTREMITIES: Warm to touch, no edema NEURO: MENTAL STATUS: Patient alert and oriented to self, place, time. Able to name the current president. Speech fluent, able to name and repeat, following all commands readily. CRANIAL NERVES II THROUGH XII: II: Pupils are equal and reactive to light symmetrically. Visual angulo are intact. III, IV, : No ptosis. Extraocular movements full. No nystagmus. V: Facial sensation intact from V1-3. VII. No uriah ar facial asymmetry. VIII: Hearing intact to finger rub bilaterally. IX, X: Symmetric palate elevation. XI: Shoulder shrug intact. XII: Tongue midline without fasciculation or atrophy. MOTOR: Normal bulk/tone. No pronator drift or tremor. Strength is 5/5 throughout all 4 extremities. SENSORY: Intact to light touch in all 4 extremities. Romberg is negative. REFLEXES: 2+ throughout. Toes are downgoing. COORDINATION: Finger to nose intact. No dysmetria. GAIT: Narrow-based and stable. Able to toe/heel/tandem walk DIAGNOSTIC TESTING: LABORATORY: WBC 5.0 Hgb 10.7 Platelet 234 Na 140 K 4.0 Cl 109 CO2 24 BUN 14 Cr 0.75 glucose 73 AST 52 ALT 98 ALkPhos 111 CK 192 Vitamin B12 814 folate 6.3 IMAGING: CT Head w/o contrast 10/22/2019: Negative CT brain ASSESSMENT/RECOMMENDATIONS: 44 year-old man with PMhx of EtOH abuse , transferred to [facility] after a witness saw patient falling and having a GTC seizure. Last EtOH intake almost 1 week prior to seizure episode. Patient had been getting 1mg of Ativan at the rehab facility until the day of seizure episode when he didn't get any meds. patient with hx of EtOH withdrawal seizures. Patient likely had EtOH withdrawal seizures at this time as well. No EEG or seizure medication recommended at this time. Neurology will sign off. Past Medical History Past Medical History: Seizure Disorder Additional Past Medical History / Comment(s): ETOH abuse, ETOH withdrawal with seizure once in the past. History of Any Multi-Drug Resistant Organisms: None Reported Past Surgical History: No Surgical Hx Reported Past Anesthesia/Blood Transfusion Reactions: Unable to Obtain Additional Past Anesthesia/Blood Transfusion Reaction / Comment(s): Pt has never had surgery. Smoking Status: Current every day smoker - Past Family History Father Family Medical History: No Reported History Additional Family Medical History / Comment(s): Father is healthy Mother Family Medical History: No Reported History Additional Family Medical History / Comment(s): Mother is healthy. Medications and Allergies Home Medications Medication Instructions Recorded Confirmed Type Acetaminophen Tab [Tylenol] 650 mg PO Q4H PRN 10/22/19 10/22/19 History Calcium/Magnesium(Unknown Dose) 2 tab PO TID 10/22/19 10/22/19 History Chlorpheniramine Maleate 4 mg PO Q4H PRN 10/22/19 10/22/19 History [Chlor-Trimeton] Ibuprofen [Motrin] 600 mg PO Q6H PRN 10/22/19 10/22/19 History Multivitamins, Thera [Multivitamin 1 tab PO DAILY@1330 10/22/19 10/22/19 History (formulary)] Ondansetron HCl [Zofran] 8 mg PO Q6H PRN 10/22/19 10/22/19 History Thiamine [Vitamin B-1] 100 mg PO DAILY@1330 10/22/19 10/22/19 History Tigan 200mg Im Solution 200 mg IM Q6H PRN 10/22/19 10/22/19 History Tigan 300mg Suppository 300 mg RECTAL Q6H PRN 10/22/19 10/22/19 History Trimethobenzamide HCl [Tigan] 300 mg PO Q6H PRN 10/22/19 10/22/19 History Zofran 2mg/Ml Im Solution 4 mg IM Q6H PRN 10/22/19 10/22/19 History busPIRone HCl [Buspar] 10 mg PO TID PRN 10/22/19 10/22/19 History traZODone HCL 50 - 150 mg PO HS 10/22/19 10/22/19 History Folic Acid 1 mg PO DAILY tab 10/24/19 Rx HYDROcodone/APAP 7.5-325MG [Provo 1 each PO Q6H PRN tab 10/24/19 Rx 7.5-325] Allergies Allergy/AdvReac Type Severity Reaction Status Date / Time No Known Allergies Allergy Verified 10/22/19 23:27 Physical Examination - Vital Signs Vital Signs: Vital Signs Temp Pulse Resp BP Pulse Ox 10/24/19 05:00 96.1 F L 66 16 120/71 99 10/23/19 21:00 98.6 F 92 16 134/84 98 10/23/19 15:00 98.1 F 79 14 122/63 98 Intake and Output 10/23/19 10/24/19 10/24/19 22:59 06:59 14:59 Intake Total 990 1400 Balance 990 1400 Intake: Intake, IV Titration 400 800 Amount Sodium Chloride 0.9% 1, 400 800 000 ml @ 100 mls/hr IV . Q10H [facility] Rx#:[id number] Oral 590 600 Other: Voiding Method Toilet Toilet Toilet # Voids 2 3 # Bowel Movements 1 Results - Laboratory Findings CBC and BMP: 10/23/19 06:33 10/23/19 06:33 Abnormal Lab Findings: Abnormal Labs 10/22/19 10/22/19 10/23/19 22:32 22:32 06:33 RBC 3.19 L 3.25 L Hgb 10.5 L 10.7 L Hct 32.8 L 33.6 L MCV 102.8 H 103.1 H Basophils # (Manual) 0.21 H Chloride 109 H Glucose 120 H AST 62 H ALT 109 H Creatine Kinase 197 H 10/23/19 06:33 RBC Hgb Hct MCV Basophils # (Manual) Chloride 109 H Glucose 73 L AST ALT 98 H Creatine Kinase
== END 2019-10-24 15:25 | DRG 897 ==
LOC: EC 21:12 → 5NMEDONC 23:55
PROVIDERS: ADMIT Internal Medicine; ATTEND Internal Medicine
PROC: 0HQ1XZZ Repair Face Skin, External Approach (ICD-10-PCS; principal; 2019-10-23)
DX: F10.239 Alcohol dependence with withdrawal, unspecified (principal); G40.89 Other seizures; F17.210 Nicotine dependence, cigarettes, uncomplicated; R94.5 Abnormal results of liver function studies; D53.9 Nutritional anemia, unspecified; S01.81XA Laceration without foreign body of other part of head, initial encounter; W18.30XA Fall on same level, unspecified, initial encounter; Z79.899 Other long term (current) drug therapy
CPT/HCPCS: 12015; 36415; 70450; 70486; 72125; 80053; 82550; 82607; 82746; 83605; 83690; 85025; 85027; 93005; 93306; 96361; 96372; 96374; 96376; 99285